=== PATIENT | female | born 1945 | race Caucasian/White ===

== ENCOUNTER 2019-06-09 04:47 | Emergency (ER) | payer MEDICARE, OTHER ==
[2019-06-09] MEDS ORDERED: Acetaminophen/HYDROcodone 325-5 MG Tab PO ONE (05:23)
--- NOTE | 2019-06-09 05:55 | EDM.PDOC ---
<Stephanie Yarbrough - Last Filed: 06/09/19 06:30> ED HPI GENERAL MEDICAL PROBLEM - General Chief Complaint: Lower Extremity Injury/Pain Stated Complaint: LEFT LEGG Time Seen by Provider: 06/09/19 05:00 Source of Information: Reports: Patient, RN Notes Reviewed History Limitations: Reports: No Limitations - History of Present Illness INITIAL COMMENTS - FREE TEXT/NARRATIVE: ED per s/c with c/o Left knee pain and left thigh nerve pain. Worse since clinic appointment on Sunday and had to do a lot of walking. John getting back into bed bumbed knee on bed and pain worsened, slid to floor , did not hit head unable to get up on own. EMS called for lift assist. Presents with niece who reports, they are not close and knows little hx. Denies hx of back problems , No report of hip pain. Pain is same as previous to john's event. States kidney disease to bad to do any knee surgery. Has tried tylenol at home and lotions that don't help. Diabetic. Has had previous knee injections that help but can't recall when last done. Uses cane for assistance. Able to transfer from private vehicle with standby assistance. Left Knee Pain Score (Numeric/FACES): 8 - Related Data Allergies Allergy/AdvReac Type Severity Reaction Status Date / Time clindamycin Allergy Rash Verified 06/09/19 04:58 Penicillins Allergy Cannot Verified 06/09/19 04:58 Remember ramipril [From Altace] Allergy Tachycardia Verified 06/09/19 04:58 Past Medical History HEENT History: Reports: Impaired Vision Cardiovascular History: Reports: High Cholesterol, Hypertension Genitourinary History: Reports: Chronic Renal Insuffiency Musculoskeletal History: Reports: Other (See Below) Other Musculoskeletal History: chronic left knee and nerve pain Endocrine/Metabolic History: Reports: Diabetes, Type II Social & Family History - Tobacco Use Smoking Status *Q: Never Smoker Second Hand Smoke Exposure: No - Recreational Drug Use Recreational Drug Use: No Review of Systems - Review of Systems Review Of Systems: Comprehensive ROS is negative, except as noted in HPI. ED EXAM, GENERAL - Physical Exam Exam: See Below Exam Limited By: No Limitations General Appearance: Alert, Anxious, Mild Distress Eye Exam: Bilateral Eye: EOMI Ears: Normal External Exam, Hearing Grossly Normal Nose: Normal Inspection Head: Atraumatic, Normocephalic Neck: Normal Inspection Respiratory/Chest: No Respiratory Distress, Lungs Clear, Normal Breath Sounds Cardiovascular: Regular Rate, Rhythm GI/Abdominal: Normal Bowel Sounds, Soft Back Exam: Full Range of Motion Extremities: Joint Swelling (mild left knee), Limited Range of Motion, Other ( tenderness to palpation to left mid medial and lateral thigh to knee. ) Neurological: Alert, Oriented, Normal Cognition Skin Exam: Warm, Dry, Intact, Normal Color. No: Ecchymosis Course - Vital Signs Last Recorded V/S: Last Vital Signs Temp 36.1 C 06/09/19 04:51 Pulse 103 H 06/09/19 04:51 Resp 18 06/09/19 04:51 BP 106/54 L 06/09/19 04:51 Pulse Ox 100 06/09/19 04:51 - Orders/Labs/Meds Orders: Active Orders 24 hr Category Date Time Status Glucose [Blood Glucose Check, Bedside] [RC] ONETIME Care 06/09/19 07:04 Active Labs: Laboratory Tests 06/09/19 06/09/19 06/09/19 Range/Units 05:35 05:35 05:35 WBC 15.8 H (5.0-10.0) 10^3/uL RBC 4.47 (4.2-5.4) 10^6/uL Hgb 12.4 (12.0-16.0) g/dL Hct 37.3 (37.0-47.0) % MCV 83.4 (80-100) fL MCH 27.7 (27.0-34.0) pg MCHC 33.2 (33.0-35.0) g/dL Plt Count 296 (150-450) 10^3/uL Neut % (Auto) 82.5 H (42.2-75.2) % Lymph % (Auto) 9.2 L (20.5-50.1) % [place] % (Auto) 7.2 (2-8) % Eos % (Auto) 0.8 L (1.0-3.0) % Baso % (Auto) 0.3 (0.0-1.0) % D-Dimer, Quantitative 2300 H (0-400) ng/mL Sodium 134 L (135-145) mmol/L Potassium 3.8 (3.6-5.0) mmol/L Chloride 99 L (101-111) mmol/L Carbon Dioxide 21.0 (21.0-31.0) mmol/L Anion Gap 17.8 BUN 56 H (7-18) mg/dL Creatinine 3.9 H (0.6-1.3) mg/dL Est Cr Clr Drug Dosing 12.03 mL/min Estimated GFR (MDRD) 11 BUN/Creatinine Ratio 14.35 Glucose 247 H (74-105) mg/dL Calcium 8.9 (8.4-10.2) mg/dl Magnesium 1.8 (1.8-2.5) mg/dL Total Bilirubin 0.6 (0.2-1.0) mg/dL AST 14 (10-42) IU/L ALT 12 (10-60) IU/L Alkaline Phosphatase 127 H (42-121) IU/L Total Protein 7.1 (6.7-8.2) g/dl Albumin 3.6 (3.2-5.5) g/dl Globulin 3.5 Albumin/Globulin Ratio 1.03 Meds: Medications Discontinued Medications Generic Name Dose Route Start Last Admin Trade Name Freq PRN Reason Stop Dose Admin Hydrocodone Bitart/Acetaminophen 1 tab 06/09/19 05:23 06/09/19 05:29 [place] 325-5 Mg PO 06/09/19 05:24 1 tab ONETIME ONE Administration Departure - Departure Disposition: DC/Tfer to [facility] 02 Clinical Impression: Effusion, left knee Acute on chronic kidney failure Qualifiers: Acute renal failure type: unspecified Chronic kidney disease stage: stage 4 ( severe) Qualified Code(s): N17.9 - Acute kidney failure, unspecified; N18.4 - Chronic kidney disease, stage 4 (severe) Leukocytosis Qualifiers: Leukocytosis type: bandemia Qualified Code(s): D72.825 - Bandemia - Discharge Information Forms: ED Department Discharge, Interfacility Transfer EMTALA Care Plan Goals: Discussed the patient's history, examination, lab, x-ray and ultrasound results with Dr. Berumen (Hospitalist with [facility] in [place]). Dr. Berumen accepted the patient for continued evaluation and further management. The patient will be transported by [facility]. Sepsis Event Note - Evaluation Sepsis Screening Result: No Definite Risk - Focused Exam Vital Signs: Vital Signs Temp Pulse Resp BP Pulse Ox 06/09/19 04:51 36.1 C 103 H 18 106/54 L 100 Date Exam was Performed: 06/09/19 Time Exam was Performed: 06:30 - My Orders Last 24 Hours: My Active Orders 06/09/19 07:04 Glucose [Blood Glucose Check, Bedside] [RC] ONETIME - Assessment/Plan Last 24 Hours: My Active Orders 06/09/19 07:04 Glucose [Blood Glucose Check, Bedside] [RC] ONETIME <Sagar Rodriguez - Last Filed: 06/09/19 08:51> Course - Radiology Interpretation Free Text/Narrative:: Exam: US Duplex Left Lower Extremity Veins, Limited Exam date and time: 06/09/2019 7:14 AM Age: 73 years old Clinical indication: Abnormal findings; Abnormal lab test; Elevated d-dimer; Patient HX: Lt thigh and lt. Knee pain TECHNIQUE: Imaging protocol: Real-time Duplex ultrasound of the Left Lower Extremity with 2 -D quiñones scale, color Doppler flow and spectral waveform analysis with image documentation. Limited exam focused on the left lower extremity veins. COMPARISON: No relevant prior studies available. FINDINGS: Left deep veins: Unremarkable. The common femoral, femoral, proximal profunda femoral and popliteal veins are patent without thrombus. Normal Doppler waveforms. Normal compressibility and/or augmentation response. Left superficial veins: Unremarkable. Saphenofemoral junction is patent without thrombus. Soft tissues: There is a left knee effusion measuring 4.5 x 0.9 x 3.1 cm. . IMPRESSION: Left knee effusion is noted. No evidence of deep vein thrombosis in the left lower extremity. Thank you for allowing us to participate in the care of your patient. Dictated and Authenticated by: Susan Andujar MD - Re-Assessments/Exams Free Text/Narrative Re-Assessment/Exam: 06/09/19 08:50 A call was placed to Dr. Canales (Hospitalist here at [facility] in [place]). Dr. Canales requested the patient be transported to [facility] in [place] in order to have the fluid collected from her left knee. Departure - Departure Time of Disposition: 08:47 Condition: Fair - Discharge Information *PRESCRIPTION DRUG MONITORING PROGRAM REVIEWED*: Not Applicable *COPY OF PRESCRIPTION DRUG MONITORING REPORT IN PATIENT RIO: Not Applicable Sepsis Event Note - Focused Exam Date Exam was Performed: 06/09/19 Time Exam was Performed: 08:46
[2019-06-09 05:57] LABS: ANION GAP 17.8
== END 2019-06-09 09:55 ==
LOC: DL.ED 04:47
DX: M25.462 Effusion, left knee (principal); D72.825 Bandemia; I12.9 Hypertensive chronic kidney disease with stage 1 through stage 4 chronic kidney disease, or unspecified chronic kidney disease; E11.22 Type 2 diabetes mellitus with diabetic chronic kidney disease; N18.4 Chronic kidney disease, stage 4 (severe); N17.9 Acute kidney failure, unspecified; Z88.0 Allergy status to penicillin; Z88.1 Allergy status to other antibiotic agents; Z88.8 Allergy status to other drugs, medicaments and biological substances
CPT/HCPCS: 36415; 73552; 73562; 80053; 82962; 83735; 85025; 85379; 93971; 99284; 99285; A9270